=== PATIENT | female | born 1990 | race Two or more races ===

== ENCOUNTER 2020-01-04 18:13 | Emergency (ER) | payer OTHER ==
[~2020-01-04] VITALS: Ht 147.3 cm; Wt 87.5 kg
[~2020-01-04 18:13] MED LIST: CEFADROXIL1 G PO; KETO10TA2 PO; ORPH100T PO; PEPCID40 MG PO; PHENERGAN25 MG PO; PYRIDIUM200 MG PO; RELAGESIC 5001 EACH PO; SEPTRA DS TABLE1 TAB PO; ZANTAC150 MG; ZANTAC150 MG PO
[2020-01-04] MEDS ORDERED: SYNTHROID75 MCG (18:19)
== END 2020-01-04 22:22 | disposition home or self-care (01) ==
LOC: ER 18:13
DX: N83.291 Other ovarian cyst, right side (principal); R10.2 Pelvic and perineal pain

== ENCOUNTER 2020-01-05 08:13 | Outpatient (CLI) | payer OTHER ==
[~2020-01-05 08:13] MED LIST changes: +SYNTHROID75 MCG
== END 2020-01-05 08:15 | disposition home or self-care (01) ==
LOC: SONOGRAMA 08:13
PROVIDERS: ATTEND Emergency Medicine
DX: K80.20 Calculus of gallbladder without cholecystitis without obstruction (principal)

== ENCOUNTER 2023-06-26 07:32 | Emergency (ER) | payer OTHER ==
[~2023-06-26] VITALS: Ht 147.3 cm; Wt 89.4 kg
[2023-06-26] MEDS ORDERED: IRON236 MG (07:54)
[2023-06-26] MEDS ORDERED: VITAL-D RX TAB1 EACH (07:55)
[2023-06-26 09:03] LABS: HEMATOCRIT 38.3 % (36.0-45.00); HEMOGLOBIN 12.7 g/dL (12.0-15.00); MEAN CELL VOLUME 84.8 fL (80.00-100.00); MEAN CORPUSCULAR HEMOGLOBIN 28.1 pg (27.00-32.0); MEAN CORPUSCULAR HGB CONC 33.1 g/dl (32.0-36.0); PLATELET COUNT 416 K/uL (150-450); RED BLOOD COUNT 4.52 M/uL (4.00-6.00); RED CELL DISTRIBUTION WIDTH 13.9 % (11.5-14.5)
[2023-06-26 09:29] LABS: CALCIUM 8.8 mg/dL (8.5-10.1); CREATININE SERUM 0.49 mg/dL (0.55-1.02); GFR 146.35; POTASSIUM 4.05 mEq/L (3.5-5.1)
[2023-06-26 09:53] LABS: PH,URINE 7.5 (5.0-8.0); URINE APPEARANCE Clear; URINE BILIRRUBIN Negative (NEGATIVE); URINE BLOOD Negative; URINE COLOR Yellow; URINE GLUCOSE Negative (NEGATIVE); URINE LEUKOCYTE Negative; URINE NITRATE Negative; URINE PROTEIN Negative (NEGATIVE); URINE UROBILINOGEN 0.2 E.U./dl
[2023-06-26 09:58] LABS: URINE BACTERIA 7.5 uL (0.0-1933); URINE RBC 2.7 uL (0.0-20.8)
[2023-06-26 10:11] LABS: URINE EPITHELIAL CELLS 1.3 uL (0.0-38.8); URINE WBC 0.3 uL (0.0-23.2)
== END 2023-06-26 13:58 | disposition home or self-care (01) ==
LOC: ER 07:32
PROVIDERS: Emergency Medicine
DX: R10.84 Generalized abdominal pain (principal); I88.0 Nonspecific mesenteric lymphadenitis; E03.9 Hypothyroidism, unspecified